=== PATIENT | male | born 2000 | race African-American/Black ===

== ENCOUNTER 2022-07-31 01:40 | Emergency (ER) | payer OTHER ==
[~2022-07-31] VITALS: Ht 188 cm; Wt 68.0 kg
--- NOTE | 2022-07-31 01:45 | NUR ---
OFFLOADED TO [facility]
[2022-07-31 01:46] VITALS: BP 132/87
[2022-07-31] MEDS ORDERED: ONDANSETRON 4 MG ODT PO ONE (01:55)
[2022-07-31] MEDS ORDERED: DICYCLOMINE 20 MG/2 ML VIAL IM ONE (01:55)
--- NOTE | 2022-07-31 02:06 | NUR ---
PT GAVE CONSENT TO SPEAK WITH FAMILY ABOUT MEDICAL CLEARANCE. FAMILY CALLED IN AND ASKED FOR UPDATE
[2022-07-31 02:11] VITALS: BP 132/87
--- NOTE | 2022-07-31 02:11 | NUR ---
PATIENT [facility] POLICE DEPT. PATIENT EXAMINED BY DR. HOLLY. PATIENT MEDICALLY CLEARED AND RELEASED IN CUSTODY IN STABLE CONDITION. ORIGINAL PRE-BOOK FORM GIVEN TO OFFICER EMILY.
== END 2022-07-31 02:11 ==
LOC: MED 01:40
DX: R10.84 Generalized abdominal pain (principal); R11.2 Nausea with vomiting, unspecified; Z88.6 Allergy status to analgesic agent; Z79.899 Other long term (current) drug therapy
CPT/HCPCS: 96372; 99283; J0500; Q0162